=== PATIENT | female | born 1985 | race African-American/Black ===

== ENCOUNTER 2018-08-16 08:23 | Emergency (ER) | payer OTHER ==
[~2018-08-16] VITALS: Ht 162.6 cm; Wt 81.7 kg
[2018-08-16 09:17] VITALS: BP 130/88
== END 2018-08-16 09:18 | disposition home or self-care (01) ==
LOC: ER 08:23
DX: R09.89 Other specified symptoms and signs involving the circulatory and respiratory systems (principal)

== ENCOUNTER 2019-10-29 00:05 | Emergency (ER) | payer OTHER ==
[~2019-10-29] VITALS: Ht 162.6 cm; Wt 58.5 kg
[2019-10-29] MEDS ORDERED: ULTRAM 50MG TAB50 MG PO (02:28)
[2019-10-29] MEDS ORDERED: IBUPROFEN 600600 M1 PO (02:28)
[2019-10-29 03:44] VITALS: BP 123/77
== END 2019-10-29 03:45 | disposition home or self-care (01) ==
LOC: ER 00:05
DX: M24.411 Recurrent dislocation, right shoulder (principal); X58.XXXA Exposure to other specified factors, initial encounter; Y93.89 Activity, other specified; Y92.89 Other specified places as the place of occurrence of the external cause; Y99.8 Other external cause status